=== PATIENT | male | born 1960 | race Caucasian/White ===

== ENCOUNTER 2018-04-06 20:07 | Emergency (ER) | payer BC ==
[~2018-04-06] VITALS: Ht 177.8 cm; Wt 103.7 kg
[~2018-04-06 20:07] MED LIST: LISI-170 PO
[2018-04-06] MEDS ORDERED: PROPOFOL 10 MG/ML, 20ML ONE (20:27)
[2018-04-06] MEDS ORDERED: MORPHINE SULFATE 4 MG/ML, 1ML ONE (20:28)
[2018-04-06] MEDS ORDERED: ONDANSETRON 2MG/ML, 2ML ONE (20:28)
[2018-04-06] MEDS ORDERED: MORPHINE SULFATE 4 MG/ML, 1ML IVPush PRN (20:30)
[2018-04-06] MEDS ORDERED: SODIUM CHLORIDE FLUSH 10ML SYR IVF ONE (20:30)
[2018-04-06] MEDS ORDERED: ONDANSETRON 2MG/ML, 2ML IVPush ONE (20:30)
[2018-04-06 22:18] VITALS: BP 127/67
== END 2018-04-06 22:20 | disposition home or self-care (01) ==
LOC: ED 21:35
DX: S43.084A Other dislocation of right shoulder joint, initial encounter (principal); W19.XXXA Unspecified fall, initial encounter; Y93.89 Activity, other specified; Y99.8 Other external cause status; Y92.009 Unspecified place in unspecified non-institutional (private) residence as the place of occurrence of the external cause
CPT/HCPCS: 23650; 73030; 96374; 96375; 99285; J2405

== ENCOUNTER 2018-08-14 13:49 | Inpatient (IN) | payer BC, OTHER ==
[~2018-08-14] VITALS: Ht 177.8 cm; Wt 93.5 kg
[2018-08-14] MEDS ORDERED: SODIUM CHLORIDE FLUSH 10ML SYR IVF ONE ×2 (15:00→18:00)
--- NOTE | 2018-08-14 15:18 | NUR ---
pt up in room walking around. iv in place for ct. at side. pt refusing to get in gown
--- NOTE | 2018-08-14 15:46 | NUR ---
PT AWAITING CT AT THIS TIME. INSTRUCTED THAT PT IS STILL NPO AT THIS TIME.
[2018-08-14] MEDS ORDERED: OMNIPAQUE 350 MG/ML, 100ML BOTTLE ONE (17:02)
[2018-08-14] MEDS ORDERED: AMPICILLIN/SULBACTAM 3 GM in SODIUM CHLORIDE 0.9% 100 ML IV ONE (17:49)
[2018-08-14] MEDS ORDERED: METRONIDAZOLE PMX 500MG/100ML 100 ML IV ONE (18:00)
--- NOTE | 2018-08-14 18:08 | NUR ---
Report to floor RN, states room is not ready, ok to transport in 20min
[2018-08-14 18:13] LABS: BASOPHILS # (AUTO) 0.03 x10^3/uL (0-0.1); BASOPHILS % (AUTO) 0 % (0-1); EOSINOPHILS % (AUTO) 0 % (1-7); LYMPHOCYTES # (AUTO) 1.39 x10^3/uL (1-3.4); LYMPHOCYTES % (AUTO) 11 % (22-44); MD NO; MEAN CORPUSCULAR HEMOGLOBIN 35.6 pg (27.5-34.5); MEAN CORPUSCULAR HGB CONC 34.3 g/dL (33.2-36.2); MEAN CORPUSCULAR VOLUME 103.8 fL (81-97); MEAN PLATELET VOLUME 7.4 fL (7.4-10.4); MONOCYTES # (AUTO) 1.41 x10^3/uL (0.2-0.8); MONOCYTES % (AUTO) 11 % (2-9); NEUTROPHILS # (AUTO) 9.73 x10^3/uL (1.8-6.8); NEUTROPHILS % (AUTO) 78 % (42-75); PLATELET COUNT 335 x10^3/uL (130-400); RED BLOOD COUNT 4.48 x10^6/uL (4.38-5.82); RED CELL DISTRIBUTION WIDTH 12.4 % (9.4-14.8)
--- NOTE | 2018-08-14 18:21 | NUR ---
Admit order changed to surgical floor, throughput aware. Pt to MRI prior abx adminstration.
--- NOTE | 2018-08-14 18:21 | NUR ---
Cultures drawn x2
[2018-08-14 18:25] LABS: ALANINE AMINOTRANSFERASE 46 U/L (12-78); ANION GAP 7 mmol/L (5-15); CALCIUM 8.9 mg/dL (8.5-10.1); CHLORIDE 99 mmol/L (98-107); CREATININE 0.78 mg/dL (0.7-1.3)
[2018-08-14 18:27] LABS: ALKALINE PHOSPHATASE 110 U/L (45-117); BILIRUBIN,TOTAL 0.7 mg/dL (0.2-1.0); TOTAL PROTEIN 8.1 g/dL (6.4-8.2)
[2018-08-14] MEDS ORDERED: GADOBUTROL 10 MMOL/10 ML PFS ONE (18:50)
--- NOTE | 2018-08-14 19:14 | NUR ---
REPORT TO ROLANDO JULIEN.
[2018-08-14] MEDS ORDERED: VANCOMYCIN PMX 1GM/200ML 200 ML IV ONE (19:30)
[2018-08-14] MEDS ORDERED: ONDANSETRON 2MG/ML, 2ML IVPush PRN ×2 (20:00→23:00)
[2018-08-14] MEDS ORDERED: LIDODERM 5% PATCH TD PRN (20:00)
[2018-08-14] MEDS ORDERED: LABETALOL 5 MG/ML SYRINGE IVPush PRN (20:00)
[2018-08-14] MEDS ORDERED: LABETALOL 5MG/ML, 20ML IVPush PRN (20:00)
[2018-08-14] MEDS ORDERED: ACETAMINOPHEN 325 MG TABLET PO PRN (20:00)
[2018-08-14] MEDS ORDERED: LORazepam 2 MG/ML, 1ML IVPush PRN (20:00)
[2018-08-14] MEDS ORDERED: morphine SULFATE 10 MG/ML, 1ML IVPush PRN (20:00)
[2018-08-14] MEDS ORDERED: BISACODYL 10 MG SUPP PR PRN (20:00)
[2018-08-14] MEDS ORDERED: MIDAZOLAM 1 MG/ML, 2ML ONE (21:56)
[2018-08-14 21:58] LABS: HEMOGLOBIN A1C 9.1 % (4.2-6.3)
[2018-08-14] MEDS ORDERED: LIDOCAINE 1%-EPI 1:100K, 20ML INFIL ONE (22:00)
[2018-08-14] MEDS ORDERED: PROPOFOL 10 MG/ML, 20ML ONE (22:05)
[2018-08-14] MEDS ORDERED: DEXAMETHASONE 4 MG/ML, 1ML ONE (22:05)
[2018-08-14] MEDS ORDERED: ONDANSETRON 2MG/ML, 2ML ONE (22:05)
[2018-08-14] MEDS ORDERED: CEFAZOLIN 1,000 MG ONE (22:05)
[2018-08-14] MEDS ORDERED: SUCCINYLCHOLINE 20 MG/ML, 10ML ONE (22:05)
[2018-08-14] MEDS ORDERED: ROCURONIUM 10MG/ML,5ML ONE (22:05)
[2018-08-14] MEDS ORDERED: FENTANYL PF 100 MCG/2ML ONE (22:22)
[2018-08-14] MEDS ORDERED: FENTANYL PF 250 MCG/5ML ONE (22:34)
[2018-08-14] MEDS ORDERED: LIDOCAINE 1%-EPI 1:100K, 20ML ONE (22:38)
[2018-08-14] MEDS ORDERED: SUGAMMADEX 200 MG/2 ML IVPush ONE (22:38)
[2018-08-14] MEDS ORDERED: LABETALOL 5MG/ML, 20ML IV PRN (23:00)
[2018-08-14] MEDS ORDERED: KETOROLAC 30 MG/1 ML IV PRN (23:00)
[2018-08-14] MEDS ORDERED: FENTANYL PF 100 MCG/2ML IV PRN (23:00)
[2018-08-14] MEDS ORDERED: MEPERIDINE/PF 25MG/0.5ML IVPush PRN (23:00)
[2018-08-14] MEDS ORDERED: PROMETHAZINE 25 MG/ML, 1ML IV PRN (23:00)
[2018-08-14] MEDS ORDERED: OXYcodone 5 MG/5 ML ORAL.SOL UDC PO PRN (23:00)
[2018-08-14] MEDS ORDERED: ALBUTEROL SULFATE 2.5 MG/3 ML NPPB PRN (23:00)
[2018-08-14] MEDS ORDERED: hydrALAzine 20 MG/ML, 1ML IV PRN (23:00)
[2018-08-14] MEDS ORDERED: METOCLOPRAMIDE 5 MG/ML, 2ML IV PRN (23:00)
[2018-08-14] MEDS ORDERED: HYDROmorphone 1 MG/ML, 1ML AMP IV PRN (23:00)
[2018-08-14] MEDS ORDERED: KETOROLAC 30 MG/1 ML ONE (23:01)
[2018-08-14] MEDS ORDERED: hydrALAzine 20 MG/ML, 1ML ONE (23:10)
[2018-08-14 23:40] VITALS: BP 124/79
[2018-08-15] VITALS (7 sets, daily range): BP systolic 142–182; BP diastolic 84–123
[2018-08-15] MEDS ORDERED: ONDANSETRON 2MG/ML, 2ML IVPush PRN (01:00)
[2018-08-15] MEDS ORDERED: MORPHINE SULFATE 4 MG/ML, 1ML IVPush PRN (01:00)
[2018-08-15] MEDS: D5%-LACTATED RINGERS 1,000 ML IV SCH ×2 (01:30→09:30)
[2018-08-15] MEDS: AMPICILLIN/SULBACTAM 3 GM in SODIUM CHLORIDE 0.9% 100 ML IV SCH ×4 (02:24→20:05)
[2018-08-15 05:06] LABS: BASOPHILS # (AUTO) 0.04 x10^3/uL (0-0.1); BASOPHILS % (AUTO) 0 % (0-1); EOSINOPHILS % (AUTO) 0 % (1-7); LYMPHOCYTES # (AUTO) 1.53 x10^3/uL (1-3.4); LYMPHOCYTES % (AUTO) 11 % (22-44); MD NO; MEAN CORPUSCULAR HEMOGLOBIN 35.4 pg (27.5-34.5); MEAN CORPUSCULAR VOLUME 103.8 fL (81-97); MEAN PLATELET VOLUME 7.5 fL (7.4-10.4); MONOCYTES # (AUTO) 1.31 x10^3/uL (0.2-0.8); MONOCYTES % (AUTO) 10 % (2-9); NEUTROPHILS # (AUTO) 10.61 x10^3/uL (1.8-6.8); NEUTROPHILS % (AUTO) 79 % (42-75); PLATELET COUNT 303 x10^3/uL (130-400); RED BLOOD COUNT 4.13 x10^6/uL (4.38-5.82); RED CELL DISTRIBUTION WIDTH 12.2 % (9.4-14.8)
[2018-08-15 05:19] LABS: ANION GAP 8 mmol/L (5-15); CALCIUM 8.6 mg/dL (8.5-10.1); CHLORIDE 104 mmol/L (98-107)
[2018-08-15] MEDS: LISINOPRIL 20 MG TABLET PO SCH (08:19)
[2018-08-15] MEDS: INSULIN LISPRO 100 UNITS/ML, PEN SQ-INSULIN SCH ×4 (08:21→20:18)
[2018-08-15] MEDS: HYDROcodone/APAP 7.5-325MG/15ML UDC PO PRN (13:59)
[2018-08-15] MEDS: CHLORTHALIDONE 25 MG TABLET PO SCH (14:20)
[2018-08-15 15:09] LABS: HCT (SEDRATE) 41.9 % (39.2-51.8)
[2018-08-15] MEDS ORDERED: hydrALAzine 20 MG/ML, 1ML IV ONE (16:30)
[2018-08-15 16:46] LABS: MICROSCOPIC NOT IND
[2018-08-15] MEDS: TEMAZEPAM 15 MG CAPSULE PO PRN (20:18)
[2018-08-16] MEDS: AMPICILLIN/SULBACTAM 3 GM in SODIUM CHLORIDE 0.9% 100 ML IV SCH ×4 (01:54→20:36)
[2018-08-16 03:46] VITALS: BP 145/96
[2018-08-16] MEDS: HYDROcodone/APAP 7.5-325MG/15ML UDC PO PRN (03:53)
[2018-08-16 08:00] VITALS: BP 141/97
[2018-08-16] MEDS: LISINOPRIL 20 MG TABLET PO SCH (09:17)
[2018-08-16] MEDS: CHLORTHALIDONE 25 MG TABLET PO SCH (09:17)
[2018-08-16] MEDS: INSULIN LISPRO 100 UNITS/ML, PEN SQ-INSULIN SCH ×4 (09:18→21:15)
[2018-08-16] MEDS ORDERED: LIDOCAINE 1%-EPI 1:100K, 20ML INFIL ONE (10:30)
[2018-08-16 13:25] VITALS: BP 128/87
[2018-08-16] MEDS: NYSTATIN 500,000 UNITS/5 ML UDC PO SCH ×2 (16:11→21:16)
[2018-08-16 20:35] VITALS: BP 139/95
[2018-08-16] MEDS: TEMAZEPAM 15 MG CAPSULE PO PRN (21:16)
[2018-08-17 01:44] VITALS: BP 153/100
[2018-08-17] MEDS: AMPICILLIN/SULBACTAM 3 GM in SODIUM CHLORIDE 0.9% 100 ML IV SCH ×2 (02:06→09:19)
[2018-08-17] MEDS: HYDROcodone/APAP 7.5-325MG/15ML UDC PO PRN (02:06)
[2018-08-17] MEDS: NYSTATIN 500,000 UNITS/5 ML UDC PO SCH ×3 (06:18→16:00)
[2018-08-17] MEDS: INSULIN LISPRO 100 UNITS/ML, PEN SQ-INSULIN SCH ×3 (07:00→16:00)
[2018-08-17 08:46] VITALS: BP 150/102
[2018-08-17] MEDS: LISINOPRIL 20 MG TABLET PO SCH (09:18)
[2018-08-17] MEDS: CHLORTHALIDONE 25 MG TABLET PO SCH (09:19)
[2018-08-17] MEDS ORDERED: ERTAPENEM 1 GM in SODIUM CHLORIDE 0.9% 50 ML IV SCH (12:00)
[2018-08-17] MEDS ORDERED: ERTA1VIA4 IV (16:27)
[2018-08-17] MEDS ORDERED: NYST1000 PO (16:27)
[2018-08-17] MEDS ORDERED: GLIP5TAB10 PO (16:27)
[2018-08-17] MEDS ORDERED: CHLO25TA PO (16:27)
[2018-08-17 16:30] VITALS: BP 148/88
[2018-08-17] MEDS ORDERED: PICC FLUSH PROTOCOL XX SCH (21:00)
== END 2018-08-17 19:00 | disposition home or self-care (01) | DRG 871 ==
LOC: ED 14:50 → EDIP 17:43 → 4NOR 19:35
PROVIDERS: ADMIT Internal Medicine; ATTEND Internal Medicine
PROC: 0C9M3ZZ Drainage of Pharynx, Percutaneous Approach (ICD-10-PCS; principal; 2018-08-14 21:45)
PROC: 02HV33Z Insertion of Infusion Device into Superior Vena Cava, Percutaneous Approach (ICD-10-PCS; 2018-08-17)
PROC: B5181ZA Fluoroscopy of Superior Vena Cava using Low Osmolar Contrast, Guidance (ICD-10-PCS; 2018-08-17)
PROC: B548ZZA Ultrasonography of Superior Vena Cava, Guidance (ICD-10-PCS; 2018-08-17)
DX: A41.9 Sepsis, unspecified organism (principal); G06.2 Extradural and subdural abscess, unspecified; B37.89 Other sites of candidiasis; J39.0 Retropharyngeal and parapharyngeal abscess; L02.11 Cutaneous abscess of neck; M46.22 Osteomyelitis of vertebra, cervical region; D75.89 Other specified diseases of blood and blood-forming organs; E11.65 Type 2 diabetes mellitus with hyperglycemia; E11.69 Type 2 diabetes mellitus with other specified complication; F10.10 Alcohol abuse, uncomplicated; F12.90 Cannabis use, unspecified, uncomplicated; F17.210 Nicotine dependence, cigarettes, uncomplicated; H91.91 Unspecified hearing loss, right ear; I10 Essential (primary) hypertension; I16.0 Hypertensive urgency; K02.9 Dental caries, unspecified; K13.3 Hairy leukoplakia; M43.6 Torticollis; M48.02 Spinal stenosis, cervical region; Z82.49 Family history of ischemic heart disease and other diseases of the circulatory system; Z83.3 Family history of diabetes mellitus; Z88.8 Allergy status to other drugs, medicaments and biological substances; Z71.6 Tobacco abuse counseling
CPT/HCPCS: 36415; 36573; 70100; 70491; 71045; 72156; 80048; 80053; 81003; 82550; 82607; 82962; 83036; 83605; 85025; 85651; 86140; 86361; 87040; 87070; 87075; 87077; 87205; 87806; 93005; 99291; A9585; G0378; J0295; J0690; J1100; J1335; J1885; J2250; J2405; J2704; J3010; J3490; Q9967; C1751; G0475; J0330; J0360; J1815

== ENCOUNTER → 2018-11-10 | Outpatient (CLI) | payer OTHER ==
[~2018-11-10] MED LIST changes: +CHLO25TA PO; +ERTA1VIA4 IV; +GLIP5TAB10 PO; +NYST1000 PO
== END | disposition home or self-care (01) ==
LOC: CFH 07:34
PROVIDERS: ATTEND Internal Medicine Cardiovascular Disease
DX: I34.0 Nonrheumatic mitral (valve) insufficiency (principal); I25.89 Other forms of chronic ischemic heart disease; I11.9 Hypertensive heart disease without heart failure; E11.9 Type 2 diabetes mellitus without complications; E78.5 Hyperlipidemia, unspecified
CPT/HCPCS: 78452; 93017; 93306; A9502

== ENCOUNTER 2018-11-22 13:41 | Emergency (ER) | payer OTHER ==
[~2018-11-22] VITALS: Ht 177.8 cm; Wt 95.0 kg
[2018-11-22] MEDS ORDERED: DEXTROSE 50%, 50ML SYRINGE IVPush ONE (14:00)
[2018-11-22] MEDS ORDERED: SODIUM CHLORIDE FLUSH 10ML SYR IVF ONE ×2 (14:00→14:30)
--- NOTE | 2018-11-22 14:19 | NUR ---
THIS PT WAS A STRIAGHT BACK, PT HAVING HYPOGLYCEMIC EVENT. PT REPORTS HEAVY DRINKING AND TAKING DIABETES MEDICATIONS TODAY. PT ON ARRIVAL A/OX1 AND AFTER GETTING BG UP WAS ABLE TO RESPONG WITH NAME. 1/2 AMPULE OF DEXTROSE GIVEN AND ORAL FOOD (OJ, PEANUT BUTTER AND CRACKERS). PT CONNECTED TO ALL MONITORS AND CALL LIGHT IN REACH. PIV PLACED AND EKG COMPELTED. VSS ON MONITORS, SECONG BG WAS 38.
[2018-11-22 14:22] LABS: BASOPHILS # (AUTO) 0.03 x10^3/uL (0-0.1); BASOPHILS % (AUTO) 0 % (0-1); EOSINOPHILS # (AUTO) 0.51 x10^3/uL (0-0.4); EOSINOPHILS % (AUTO) 5 % (1-7); LYMPHOCYTES # (AUTO) 2.27 x10^3/uL (1-3.4); LYMPHOCYTES % (AUTO) 24 % (22-44); MD NO; MEAN CORPUSCULAR HEMOGLOBIN 35.1 pg (27.5-34.5); MEAN CORPUSCULAR HGB CONC 33.8 g/dL (33.2-36.2); MEAN CORPUSCULAR VOLUME 103.6 fL (81-97); MEAN PLATELET VOLUME 7.5 fL (7.4-10.4); MONOCYTES # (AUTO) 0.89 x10^3/uL (0.2-0.8); MONOCYTES % (AUTO) 9 % (2-9); NEUTROPHILS % (AUTO) 61 % (42-75); PLATELET COUNT 264 x10^3/uL (130-400); RED BLOOD COUNT 4.77 x10^6/uL (4.38-5.82); RED CELL DISTRIBUTION WIDTH 13.7 % (9.4-14.8)
[2018-11-22 14:23] VITALS: BP 165/92
--- NOTE | 2018-11-22 14:30 | NUR ---
BEDSIDE REPORT TO ANABELLE RN, VSS, PT A/OX4. BG TO BE CHECKED IN 20 MINUTES.
[2018-11-22 14:36] LABS: ALANINE AMINOTRANSFERASE 49 U/L (12-78); ALKALINE PHOSPHATASE 89 U/L (45-117); ANION GAP 12 mmol/L (5-15); BILIRUBIN,TOTAL 0.7 mg/dL (0.2-1.0); CALCIUM 8.6 mg/dL (8.5-10.1); CHLORIDE 105 mmol/L (98-107); CREATININE 0.81 mg/dL (0.7-1.3); TOTAL PROTEIN 7.9 g/dL (6.4-8.2)
--- NOTE | 2018-11-22 14:59 | NUR ---
ASSUMED CARE. PT AMBULATED TO BATHROOM WITH STAFF, A&O. AT BEDSIDE.
--- NOTE | 2018-11-22 15:27 | NUR ---
PROVIDED MEAL TRAY AND TO CT
--- NOTE | 2018-11-22 16:47 | NUR ---
REPEAT BEDSIDE BLOOD GLUCOSE 228. AMBULATED TO DISCHARGE WINDOW, STEADY GAIT
== END 2018-11-22 16:49 ==
LOC: ED 16:42
DX: E11.649 Type 2 diabetes mellitus with hypoglycemia without coma (principal); F10.129 Alcohol abuse with intoxication, unspecified; I10 Essential (primary) hypertension; F17.200 Nicotine dependence, unspecified, uncomplicated
CPT/HCPCS: 36415; 70450; 80053; 80307; 85025; 93005; 96374

== ENCOUNTER 2019-03-30 06:52 | Inpatient (IN) | payer OTHER ==
[~2019-03-30] VITALS: Ht 180.3 cm; Wt 95.7 kg
[~2019-03-30 06:52] MED LIST changes: +ASPI-496 PO; +ATOR10TA PO; +CARV6.2512 PO; +CHOL200074 PO; +CYAN50008 SL; +TAMS-11 PO; +VITA1TAB19 PO
[2019-03-30] MEDS ORDERED: DEXTROSE 10% 1,000 ML IV SCH (07:00)
[2019-03-30] MEDS ORDERED: SODIUM CHLORIDE FLUSH 10ML SYR IVF ONE (07:00)
[2019-03-30] MEDS ORDERED: LORazepam 2 MG/ML, 1ML ONE (07:10)
[2019-03-30] MEDS: LORazepam 2 MG/ML, 1ML IVPush PRN ×2 (07:14→10:18)
[2019-03-30 07:27] LABS: BASOPHILS # (AUTO) 0.02 x10^3/uL (0-0.1); BASOPHILS % (AUTO) 0 % (0-1); EOSINOPHILS % (AUTO) 0 % (1-7); LYMPHOCYTES # (AUTO) 0.81 x10^3/uL (1-3.4); LYMPHOCYTES % (AUTO) 8 % (22-44); MD NO; MEAN CORPUSCULAR HEMOGLOBIN 36.6 pg (27.5-34.5); MEAN CORPUSCULAR HGB CONC 34.3 g/dL (33.2-36.2); MEAN CORPUSCULAR VOLUME 106.8 fL (81-97); MEAN PLATELET VOLUME 7.6 fL (7.4-10.4); MONOCYTES % (AUTO) 3 % (2-9); NEUTROPHILS # (AUTO) 8.54 x10^3/uL (1.8-6.8); NEUTROPHILS % (AUTO) 88 % (42-75); PLATELET COUNT 219 x10^3/uL (130-400); RED BLOOD COUNT 4.71 x10^6/uL (4.38-5.82); RED CELL DISTRIBUTION WIDTH 13.4 % (9.4-14.8)
[2019-03-30 07:37] LABS: ALBUMIN 3.8 g/dL (3.4-5.0); ANION GAP 7 mmol/L (5-15); CALCIUM 8.3 mg/dL (8.5-10.1); CHLORIDE 108 mmol/L (98-107); CREATININE 0.64 mg/dL (0.7-1.3)
[2019-03-30 07:44] LABS: ALANINE AMINOTRANSFERASE 39 U/L (12-78); ALKALINE PHOSPHATASE 86 U/L (45-117); BILIRUBIN,TOTAL 0.3 mg/dL (0.2-1.0); TOTAL PROTEIN 7.6 g/dL (6.4-8.2)
--- NOTE | 2019-03-30 07:59 | NUR ---
Pt in bed, medication infusing, breakfast tray brought to pt. Awaiting lab results & admit. Per MD Wiggins, UA not required before admit order.
[2019-03-30] MEDS ORDERED: POLYETHYLENE GLYCOL 17 GM PACKET PO PRN (09:00)
[2019-03-30] MEDS ORDERED: ONDANSETRON 2MG/ML, 2ML IVPush PRN (09:00)
[2019-03-30] MEDS ORDERED: hydrALAzine 20 MG/ML, 1ML IVPush PRN (09:00)
[2019-03-30] MEDS ORDERED: ONDANSETRON ODT 4 MG PO PRN (09:00)
[2019-03-30] MEDS ORDERED: TRAZODONE 50MG TABLET PO PRN (09:00)
[2019-03-30] MEDS: NICOTINE 21 MG/24 HR PATCH.TD24 TD SCH (09:00)
[2019-03-30] MEDS ORDERED: CYCLOBENZAPRINE 10 MG TABLET PO PRN (09:00)
[2019-03-30] MEDS ORDERED: IBUPROFEN 600 MG TABLET PO PRN (09:00)
[2019-03-30] MEDS ORDERED: CARV12.52 PO (09:02)
[2019-03-30 10:00] VITALS: BP 157/93
[2019-03-30 11:19] LABS: MICROSCOPIC NOT IND
[2019-03-30] MEDS: LISINOPRIL 20 MG TABLET PO SCH (11:19)
[2019-03-30] MEDS: TAMSULOSIN 0.4 MG CAP.ER.24H PO SCH (11:19)
[2019-03-30] MEDS: CARVEDILOL 12.5 MG TABLET PO SCH ×2 (11:19→20:37)
[2019-03-30] MEDS: ENOXAPARIN 30 MG/0.3 ML SQ SCH ×2 (11:19→22:25)
[2019-03-30 11:25] LABS: CULTURE INDICATED? NO
[2019-03-30 12:35] VITALS: BP 135/89
[2019-03-30] MEDS: INSULIN LISPRO 100 UNITS/ML, PEN SQ-INSULIN SCH ×3 (13:02→20:38)
[2019-03-30] MEDS: D5%-0.45NACL+KCL 20MEQ 1,000 ML IV SCH ×2 (13:02→22:25)
[2019-03-30 20:14] VITALS: BP 133/77
[2019-03-30] MEDS ORDERED: ATORVASTATIN 10 MG TABLET PO SCH (21:00)
[2019-03-31 01:20] VITALS: BP 151/90
[2019-03-31 06:14] LABS: ALANINE AMINOTRANSFERASE 33 U/L (12-78); ALBUMIN 3.2 g/dL (3.4-5.0); ANION GAP 6 mmol/L (5-15); CALCIUM 8.3 mg/dL (8.5-10.1); CHLORIDE 108 mmol/L (98-107); CREATININE 0.68 mg/dL (0.7-1.3)
[2019-03-31 06:17] LABS: ALKALINE PHOSPHATASE 74 U/L (45-117); BILIRUBIN,TOTAL 0.7 mg/dL (0.2-1.0); TOTAL PROTEIN 6.5 g/dL (6.4-8.2)
[2019-03-31 06:20] LABS: MEAN CORPUSCULAR HEMOGLOBIN 36.6 pg (27.5-34.5); MEAN CORPUSCULAR HGB CONC 34.1 g/dL (33.2-36.2); MEAN CORPUSCULAR VOLUME 107.2 fL (81-97); PLATELET COUNT 173 x10^3/uL (130-400); RED BLOOD COUNT 4.34 x10^6/uL (4.38-5.82); RED CELL DISTRIBUTION WIDTH 13.8 % (9.4-14.8)
[2019-03-31 06:49] LABS: BASOPHILS # (AUTO) 0.03 x10^3/uL (0-0.1); BASOPHILS % (AUTO) 0 % (0-1); EOSINOPHILS # (AUTO) 0.09 x10^3/uL (0-0.4); EOSINOPHILS % (AUTO) 1 % (1-7); LYMPHOCYTES # (AUTO) 2.03 x10^3/uL (1-3.4); LYMPHOCYTES % (AUTO) 26 % (22-44); MD SCAN; MONOCYTES # (AUTO) 0.65 x10^3/uL (0.2-0.8); MONOCYTES % (AUTO) 8 % (2-9); NEUTROPHILS # (AUTO) 4.94 x10^3/uL (1.8-6.8); NEUTROPHILS % (AUTO) 64 % (42-75)
[2019-03-31 08:15] VITALS: BP 161/91
[2019-03-31] MEDS ORDERED: SODIUM CHLORIDE 0.9% 1,000 ML IV SCH (08:30)
[2019-03-31] MEDS: NICOTINE 21 MG/24 HR PATCH.TD24 TD SCH (09:00)
[2019-03-31] MEDS ORDERED: ASPIRIN 81 MG TABLET EC PO SCH (09:00)
[2019-03-31] MEDS ORDERED: THIAMINE 100MG TABLET PO SCH (09:00)
[2019-03-31] MEDS: INSULIN LISPRO 100 UNITS/ML, PEN SQ-INSULIN SCH ×2 (09:50→11:00)
[2019-03-31] MEDS: LISINOPRIL 20 MG TABLET PO SCH (09:51)
[2019-03-31] MEDS: TAMSULOSIN 0.4 MG CAP.ER.24H PO SCH (09:51)
[2019-03-31] MEDS: CARVEDILOL 12.5 MG TABLET PO SCH (09:51)
[2019-03-31] MEDS ORDERED: NICO-487 TD (10:18)
[2019-03-31] MEDS ORDERED: THIA100T67 PO (10:18)
[2019-03-31] MEDS: ENOXAPARIN 30 MG/0.3 ML SQ SCH (11:30)
== END 2019-03-31 13:28 | disposition home or self-care (01) | DRG 93 ==
LOC: ED 07:19 → EDIP 08:26 → 4EST 09:51 → DCLOUNGE 03-31 13:06
PROVIDERS: ADMIT Family Medicine; ATTEND Internal Medicine
DX: G92 Toxic encephalopathy (principal); E11.649 Type 2 diabetes mellitus with hypoglycemia without coma; D75.89 Other specified diseases of blood and blood-forming organs; Z88.8 Allergy status to other drugs, medicaments and biological substances; E78.5 Hyperlipidemia, unspecified; E83.51 Hypocalcemia; F10.229 Alcohol dependence with intoxication, unspecified; F17.210 Nicotine dependence, cigarettes, uncomplicated; I10 Essential (primary) hypertension
CPT/HCPCS: 36415; 80053; 80307; 81003; 82962; 83735; 85025; 96365; 96366; G0378; J1650; J1815; J2060; J3480; J7030